=== PATIENT | male | born 1970 | race American Indian/Alaskan Native ===

== ENCOUNTER 2018-10-05 17:36 | Emergency (ER) | payer MEDICARE, MEDICAID ==
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
[2018-10-05] MEDS ORDERED: ADRENALIN ONE (19:40)
[2018-10-05 19:46] VITALS: BP 0/0
== END 2018-10-05 19:45 ==
LOC: EDBD → ED 17:36
DX: S29.091A Other injury of muscle and tendon of front wall of thorax, initial encounter (principal); S51.801A Unspecified open wound of right forearm, initial encounter; S21.201A Unspecified open wound of right back wall of thorax without penetration into thoracic cavity, initial encounter; I46.9 Cardiac arrest, cause unspecified; W33.01XA Accidental discharge of shotgun, initial encounter; Y93.89 Activity, other specified; Y92.89 Other specified places as the place of occurrence of the external cause; Y99.8 Other external cause status
CPT/HCPCS: 31500; 36430; 86850; 86900; 86901; 86920; 99285; J0171; P9016